=== PATIENT | male | born 1975 | race Caucasian/White ===

== ENCOUNTER 2020-09-29 12:33 | Outpatient (CLI) | payer BC | END 2020-09-29 12:34 | disposition home or self-care (01) | LOC: DTY/OP 12:33 | PROVIDERS: ATTEND Surgery | DX: E66.01 Morbid (severe) obesity due to excess calories (principal); Z68.41 Body mass index [BMI] 40.0-44.9, adult | CPT/HCPCS: 97802 ==

== ENCOUNTER 2021-04-01 09:53 | Outpatient (CLI) | payer BC ==
[2021-04-01 12:06] LABS: #Basophils 0.1 10x3/uL (0.0-0.2); #Eosinphils 0.1 10x3/uL (0.0-0.5); #Monocytes 0.7 10x3/uL (0.0-1.1); #Neutrophils 5.5 10x3/uL (1.5-8.4); %Basophils 0.7 % (0.0-2.0); %Eosinophils 1.6 % (0.0-6.0); %Lymphocytes 25.7 % (18.0-47.0); %Monocytes 7.7 % (0.0-10.0); %Neutrophils 63.9 % (40.0-75.0); Hemoglobin 17.2 g/dL (13.5-17.5); Mean Corpuscular HGB CONC 32.9 g/dL (32.0-36.0); Mean Corpuscular Hemoglobin 29.4 pg (27.0-33.0); Mean Corpuscular Volume 89.4 fl (81.2-95.1); Platelet Count 269 10x3/uL (150-450); RBC Distribution Width 13.2 % (11.5-14.5); Red Blood Cell (RBC) Count 5.85 10x6/uL (4.32-5.72); White Blood Cell (WBC) Count 8.6 10x3/uL (3.5-10.5)
[2021-04-01 12:09] LABS: ALT (SGPT) 40 U/L (8-55); AST (SGOT) 21 U/L (5-34); Albumin 4.9 g/dL (3.5-5.0); Alkaline Phosphatase 63 U/L (40-110); Anion Gap 19 mmol/L (10-20); BUN (Urea Nitrogen) 75 mg/dL (8.9-20.6); Bilirubin, Total 0.3 mg/dL (0.2-1.2); Calc. Creatinine Clearance 0 mL/min (70-130); Calcium 10.8 mg/dL (7.8-10.44); Carbon Dioxide 21 mmol/L (22-29); Chloride 102 mmol/L (98-107); Globulin 3.4 g/dL (2.4-3.5); Glucose 127 mg/dL (70-105); Protein, Total 8.3 g/dL (6.0-8.3); Sodium 136 mmol/L (136-145)
[2021-04-01 14:28] LABS: Hemoglobin A1c 8.8 % (4.0-6.0)
[2021-04-01 17:26] LABS: SARS-CoV-2 PCR by NAA Not Detected (NotDetected)
== END 2021-04-01 09:54 | disposition home or self-care (01) ==
LOC: LABBT 09:53
PROVIDERS: ATTEND Surgery
DX: Z01.818 Encounter for other preprocedural examination (principal); E66.01 Morbid (severe) obesity due to excess calories; Z20.822 Contact with and (suspected) exposure to COVID-19
CPT/HCPCS: 71046; 80053; 83036; 85025; 93005; 93010; U0003; U0005

== ENCOUNTER 2021-04-01 10:15 | Inpatient (IN) | payer BC ==
[2021-04-02 14:20] VITALS: BMI 43.1
[2021-04-06] MEDS ORDERED: ceFAZolin 2 GM/DEX 5% 100 ML BAG ONE (06:21)
[2021-04-06] MEDS ORDERED: Heparin 5,000 UNITS/ML VIAL ONE (06:21)
[2021-04-06] MEDS ORDERED: Midazolam HCl 2 mg/2 ml Vial ONE (06:41)
[2021-04-06] MEDS ORDERED: Fentanyl 250 MCG/5 ML VIAL ONE (06:41)
[2021-04-06] MEDS ORDERED: Lidocaine 2% Jelly 5 ML TUBE ONE (06:41)
[2021-04-06] MEDS ORDERED: Bupivacaine 0.25% HCL 30 ML VIAL ONE (06:48)
[2021-04-06] MEDS ORDERED: Lidocaine 0.5%/Epinephrine 1:200,000 50 ml Vial ONE (06:48)
[2021-04-06] MEDS ORDERED: Lidocaine 1% w/Epinephrine 1:100K 20 ML VIAL ONE (06:50)
[2021-04-06 07:46] LABS: Potassium 4.8 mmol/L (3.5-5.1)
[2021-04-06] MEDS ORDERED: Glycopyrrolate 0.2 MG/ML 5 ML SYRINGE ONE (08:02)
[2021-04-06] MEDS ORDERED: Dexamethasone 20 MG/5 ML VIAL ONE (08:02)
[2021-04-06] MEDS ORDERED: Lidocaine 1% PF 5 ML VIAL ONE (08:02)
[2021-04-06] MEDS ORDERED: Rocuronium Bromide 10 MG/ML (10ML VIAL) ONE (08:02)
[2021-04-06] MEDS ORDERED: Ondansetron PF 4 MG/2 ML Vial ONE (08:02)
[2021-04-06] MEDS ORDERED: PROPOFOL 200 MG/20 ML VIAL ONE (08:02)
[2021-04-06] MEDS ORDERED: Promethazine HCl 25 MG/ML VIAL IM PRN ×2 (08:31→10:43)
[2021-04-06] MEDS ORDERED: Promethazine HCl 25 MG/ML VIAL IVPB PRN (08:31)
[2021-04-06] MEDS ORDERED: Ondansetron HCl/PF 4 MG/2 ML Vial IVP PRN (08:31)
[2021-04-06] MEDS ORDERED: Fentanyl 100 MCG/2 ML VIAL ONE ×3 (10:21→11:34)
[2021-04-06] MEDS ORDERED: Promethazine HCl 25 MG/ML VIAL ONE (10:25)
[2021-04-06] MEDS ORDERED: fentaNYL Citrate/PF 2,000 MCG in Sodium Chloride 0.9% 60 ML IV PRN (10:43)
[2021-04-06] MEDS ORDERED: diphenhydrAMINE 50 MG/ML VIAL IM PRN (10:43)
[2021-04-06] MEDS ORDERED: Ondansetron PF 4 MG/2 ML Vial IVP PRN ×2 (10:43→11:30)
[2021-04-06] MEDS ORDERED: diphenhydrAMINE 50 MG/ML VIAL IVP PRN ×2 (10:43→11:30)
[2021-04-06] MEDS ORDERED: Zolpidem Tartrate 5 MG TAB PO PRN (10:43)
[2021-04-06] MEDS ORDERED: Naloxone HCl 0.4 mg/ml Vial IV PRN (10:43)
[2021-04-06] MEDS ORDERED: diphenhydrAMINE 25 MG CAP PO PRN (10:43)
[2021-04-06] MEDS ORDERED: Communication Order-Pharmacy FS SCH (10:45)
[2021-04-06] MEDS ORDERED: HYDROmorphone 0.5 MG/0.5 ML SYRINGE ONE (11:23)
[2021-04-06] MEDS ORDERED: hydrALAZINE 20 MG/ML VIAL SLOW IVP PRN (11:30)
[2021-04-06] MEDS ORDERED: Dextrose 50% Abboject 50 ML SYRINGE SLOW IVP PRN (11:30)
[2021-04-06] MEDS ORDERED: HumaLOG 300 UNITS/3 ML VIAL SC PRN (11:30)
[2021-04-06] MEDS ORDERED: Hydrocodone-Acetamin 15 ML UDCUP PO PRN (11:30)
[2021-04-06] MEDS ORDERED: Dextrose 5% in Water 1,000 ML IV PRN (11:30)
[2021-04-06] MEDS: Sodium Chloride 0.9% 1,000 ML IV SCH ×2 (20:01)
[2021-04-06] MEDS ORDERED: Enoxaparin Sodium 40 MG/0.4 ML SYRINGE SC SCH (21:00)
[2021-04-06] MEDS: Promethazine HCl 25 MG/ML VIAL IM PRN (22:49)
[2021-04-07 04:26] LABS: #Lymphocytes 1.6 thou/uL (1.20-3.40); #Neutrophils 7.2 thou/uL (1.40-6.50); %Basophils 0.1 % (0.0-1.0); %Eosinophils 0.1 % (0.0-10.0); %Lymphocytes 16.3 % (21.0-51.0); %Monocytes 10.1 % (0.0-10.0); %Neutrophils 73.4 % (42.0-75.0); Hemoglobin 14.1 g/dL (14.0-18.0); Mean Corpuscular HGB CONC 32.6 g/dL (32.0-36.0); Mean Corpuscular Hemoglobin 30.6 pg (27.0-31.0); Mean Corpuscular Volume 93.8 fL (78.0-98.0); Mean Platelet Volume 9.8 fL (7.4-10.4); Platelet Count 226 thou/uL (130-400); RBC Distribution Width 12.4 % (11.5-14.5); White Blood Cell (WBC) Count 9.8 thou/uL (4.8-10.8)
[2021-04-07 04:44] LABS: Anion Gap 15 mmol/L (10-20); BUN (Urea Nitrogen) 38 mg/dL (8.9-20.6); Calc. Creatinine Clearance 124 mL/min (70-130); Calcium 9.2 mg/dL (7.8-10.44); Carbon Dioxide 17 mmol/L (22-29); Chloride 111 mmol/L (98-107); Glucose 114 mg/dL (70-105); Potassium 4.9 mmol/L (3.5-5.1); Sodium 138 mmol/L (136-145)
[2021-04-07] MEDS ORDERED: Hydrocodone-Acetamin 15 ML UDCUP PO PRN (05:20)
[2021-04-07] MEDS: Sodium Chloride 0.9% 1,000 ML IV SCH ×2 (05:41→13:44)
[2021-04-07] MEDS: Promethazine HCl 25 MG/ML VIAL IM PRN (05:49)
[2021-04-07 08:53] VITALS: TEMP 98.4
[2021-04-07] MEDS ORDERED: Pantoprazole 40 MG VIAL IVP SCH (09:00)
[2021-04-07] MEDS ORDERED: Lisinopril 20 MG TAB PO SCH (09:00)
[2021-04-07 12:15] VITALS: BP 142/78
== END 2021-04-07 14:15 | disposition home or self-care (01) | DRG 621 ==
LOC: SURG A 04-06 05:53 → EDSTATUS 04-06 10:15 → SURG A 04-06 13:31
PROVIDERS: ADMIT Surgery; ATTEND Surgery
PROC: 0D164ZA Bypass Stomach to Jejunum, Percutaneous Endoscopic Approach (ICD-10-PCS; principal; 2021-04-06)
PROC: 8E0W4CZ Robotic Assisted Procedure of Trunk Region, Percutaneous Endoscopic Approach (ICD-10-PCS; 2021-04-06)
DX: E66.01 Morbid (severe) obesity due to excess calories (principal); Z68.41 Body mass index [BMI] 40.0-44.9, adult; E11.9 Type 2 diabetes mellitus without complications; K21.9 Gastro-esophageal reflux disease without esophagitis; I10 Essential (primary) hypertension
CPT/HCPCS: 36415; 36416; 80048; 84132; 85025; C9113; J1100; J1170; J1644; J1650; J2001; J2250; J2405; J2550; J2704; J3010; J7050; S0020

== ENCOUNTER 2022-06-09 01:13 | Inpatient (IN) | payer BC, SELFPAY ==
[2022-06-09 02:12] LABS: #Basophils 0.1 thou/uL (0.0-0.2); #Eosinphils 0.1 thou/uL (0.0-0.7); #Lymphocytes 2.2 thou/uL (1.20-3.40); #Monocytes 0.6 thou/uL (0.11-0.59); #Neutrophils 5.5 thou/uL (1.40-6.50); %Basophils 0.6 % (0.0-1.0); %Eosinophils 1.1 % (0.0-10.0); %Monocytes 6.6 % (0.0-10.0); %Neutrophils 65.6 % (42.0-75.0); Mean Corpuscular HGB CONC 33.3 g/dL (32.0-36.0); Mean Corpuscular Hemoglobin 31.4 pg (27.0-31.0); Mean Corpuscular Volume 94.2 fl (78.0-98.0); Mean Platelet Volume 9.4 fL (7.4-10.4); Platelet Count 219 10x3/uL (130-400); RBC Distribution Width 12.7 % (11.5-14.5); Red Blood Cell (RBC) Count 5.08 mill/uL (4.70-6.10); White Blood Cell (WBC) Count 8.4 10x3/uL (4.8-10.8)
[2022-06-09] MEDS ORDERED: Morphine 4 MG/ML VIAL ONE (02:25)
[2022-06-09] MEDS ORDERED: Ondansetron PF 4 MG/2 ML Vial ONE ×3 (02:25→15:37)
[2022-06-09] MEDS ORDERED: Famotidine/PF 20 mg/2ml Vial ONE ×2 (02:25→08:17)
[2022-06-09 02:32] LABS: Bacteria/HPF None Seen HPF (None Seen); Bilirubin Negative (Negative); Blood, Urine Negative (Negative); Clarity Clear (Clear); Glucose, Urine (Dipstick) Greater than 1000 mg/dL (Negative); Ketone, Urine Negative (Negative); Leukocyte Negative Leu/uL (Negative); Nitrite Negative (Negative); Protein, Urine (Dipstick) 100 mg/dL (Neg-Trace); RBC/HPF 0-3 HPF (0-3); Specific Gravity, Urine 1.028 (1.002-1.036); Squamous Epithelial 0-3 HPF (0-3); Urobilinogen Normal mg/dL (Less than 2); WBC/HPF 0-3 HPF (0-3); pH, Urine 5.5 (5.0-9.0)
[2022-06-09 02:34] LABS: ALT (SGPT) 41 U/L (8-55); AST (SGOT) 31 U/L (5-34); Alkaline Phosphatase 61 U/L (40-110); Anion Gap 14 mmol/L (10-20); BUN (Urea Nitrogen) 20 mg/dL (8.9-20.6); Bilirubin, Total 0.4 mg/dL (0.2-1.2); Calc. Creatinine Clearance 0 mL/min (70-130); Calcium 9.4 mg/dL (7.8-10.44); Carbon Dioxide 26 mmol/L (22-29); Chloride 106 mmol/L (98-107); Estimated GFR 79; Glucose 140 mg/dL (70-105); Lipase 41 U/L (8-78); Potassium 4.6 mmol/L (3.5-5.1); Sodium 141 mmol/L (136-145)
[2022-06-09] MEDS ORDERED: Fentanyl 100 MCG/2 ML VIAL ONE ×4 (02:47→15:23)
[2022-06-09] MEDS ORDERED: HYDROmorphone 0.5 MG/0.5 ML SYRINGE ONE (03:18)
[2022-06-09 04:25] VITALS: BMI 23.7
[2022-06-09] MEDS ORDERED: Promethazine HCl 25 MG/ML VIAL IM PRN ×3 (07:27→14:39)
[2022-06-09] MEDS ORDERED: Dextrose 5% in Water 1,000 ML IV PRN ×2 (07:27→14:35)
[2022-06-09] MEDS ORDERED: Ipratropium/Albuterol 3 ML NEB NEB PRN (07:27)
[2022-06-09] MEDS ORDERED: Dextrose 50% Abboject 50 ML SYRINGE SLOW IVP PRN ×2 (07:27→14:35)
[2022-06-09] MEDS ORDERED: hydrALAZINE 20 MG/ML VIAL SLOW IVP PRN (07:27)
[2022-06-09] MEDS ORDERED: Ondansetron PF 4 MG/2 ML Vial IVP PRN (07:27)
[2022-06-09] MEDS ORDERED: Fentanyl 100 MCG/2 ML VIAL SLOW IVP PRN (07:28)
[2022-06-09] MEDS ORDERED: D5 1/2 NS w/20 mEq KCL 1,000 ML IV SCH (07:30)
[2022-06-09] MEDS ORDERED: D5 1/2 NS w/20 mEq KCL 1,000 ML ONE (08:17)
[2022-06-09] MEDS ORDERED: Famotidine 20 MG TAB PO SCH (09:00)
[2022-06-09] MEDS ORDERED: Famotidine/PF 20 mg/2ml Vial SLOW IVP SCH (09:00)
[2022-06-09 10:02] LABS: SARS-CoV-2 NAA Rapid Test Not Detected (NotDetected)
[2022-06-09] MEDS ORDERED: fentaNYL PF 100 MCG/2 ML SYRINGE ONE (11:52)
[2022-06-09] MEDS ORDERED: CEFAZOLIN 2 GM VIAL ONE (12:09)
[2022-06-09] MEDS ORDERED: Sodium Chloride 0.9% 100 ML ONE (12:09)
[2022-06-09] MEDS ORDERED: Succinylcholine Chloride 100 MG/5 ML SYRINGE FS ONE (12:15)
[2022-06-09] MEDS ORDERED: PHENYLEPHRINE-NS 100 MCG/ML 10 ML SYRINGE ONE (12:15)
[2022-06-09] MEDS ORDERED: Glycopyrrolate 0.2 MG/ML 5 ML SYRINGE ONE (12:15)
[2022-06-09] MEDS ORDERED: PROPOFOL 200 MG/20 ML VIAL ONE (12:15)
[2022-06-09] MEDS ORDERED: Dexamethasone 20 MG/5 ML VIAL ONE (12:15)
[2022-06-09] MEDS ORDERED: Lidocaine 1% PF 5 ML VIAL ONE (12:15)
[2022-06-09] MEDS ORDERED: NEOSTIGMINE 3 MG/3 ML SYR 3 MG/3 ML SYRINGE ONE (12:15)
[2022-06-09] MEDS ORDERED: Rocuronium Bromide 10 MG/ML (10ML VIAL) ONE (12:15)
[2022-06-09] MEDS ORDERED: Bupivacaine/Epinephrine 0.25% 30 ML VIAL ONE (12:59)
[2022-06-09] MEDS ORDERED: GASTROGRAFIN 30 ML BOT ONE (14:29)
[2022-06-09] MEDS ORDERED: Iopamidol-370 76% 500 ML 1 ML ONE (14:29)
[2022-06-09] MEDS ORDERED: diphenhydrAMINE 25 MG CAP PO PRN (14:39)
[2022-06-09] MEDS ORDERED: Naloxone HCl 0.4 mg/ml Vial IV PRN (14:39)
[2022-06-09] MEDS ORDERED: diphenhydrAMINE 50 MG/ML VIAL IM PRN (14:39)
[2022-06-09] MEDS ORDERED: Ondansetron HCl/PF 4 MG/2 ML Vial IVP PRN (14:39)
[2022-06-09] MEDS ORDERED: diphenhydrAMINE 50 MG/ML VIAL IVP PRN (14:39)
[2022-06-09] MEDS ORDERED: FENTANYL 500 MCG/10 ML VIAL 2,000 MCG in Sodium Chloride 0.9% 60 ML IV PRN (14:39)
[2022-06-09] MEDS ORDERED: Communication Order-Pharmacy FS PRN (14:45)
[2022-06-09] MEDS: Sodium Chloride 0.9% 1,000 ML IV SCH (17:45)
[2022-06-10] MEDS: Sodium Chloride 0.9% 1,000 ML IV SCH ×4 (00:30→23:50)
[2022-06-10] MEDS: Ondansetron PF 4 MG/2 ML Vial IVP PRN ×2 (06:12→14:00)
[2022-06-10 08:01] LABS: #Eosinphils 0.1 thou/uL (0.0-0.7); #Lymphocytes 1.6 thou/uL (1.20-3.40); #Monocytes 1.1 thou/uL (0.11-0.59); #Neutrophils 6.8 thou/uL (1.40-6.50); %Basophils 0.5 % (0.0-1.0); %Eosinophils 0.7 % (0.0-10.0); %Lymphocytes 17.1 % (21.0-51.0); %Monocytes 11.2 % (0.0-10.0); %Neutrophils 70.6 % (42.0-75.0); Hemoglobin 14.2 g/dL (14.0-18.0); Mean Corpuscular HGB CONC 34.1 g/dL (32.0-36.0); Mean Corpuscular Hemoglobin 32.4 pg (27.0-31.0); Mean Corpuscular Volume 95.1 fl (78.0-98.0); Mean Platelet Volume 9.2 fL (7.4-10.4); Platelet Count 199 10x3/uL (130-400); RBC Distribution Width 12.7 % (11.5-14.5); Red Blood Cell (RBC) Count 4.37 mill/uL (4.70-6.10); White Blood Cell (WBC) Count 9.6 10x3/uL (4.8-10.8)
[2022-06-10 08:19] LABS: Anion Gap 14 mmol/L (10-20); BUN (Urea Nitrogen) 16 mg/dL (8.9-20.6); Calc. Creatinine Clearance 113 mL/min (70-130); Calcium 8.6 mg/dL (7.8-10.44); Carbon Dioxide 24 mmol/L (22-29); Chloride 105 mmol/L (98-107); Estimated GFR 104; Glucose 156 mg/dL (70-105); Potassium 4.3 mmol/L (3.5-5.1); Sodium 139 mmol/L (136-145)
[2022-06-10] MEDS: Pantoprazole 40 MG VIAL IVP SCH (08:22)
[2022-06-10] MEDS ORDERED: traMADol HCl 50 MG TAB PO PRN (11:16)
[2022-06-10] MEDS ORDERED: HYDROcodone/Acetaminophen 5/325 mg Tablet PO PRN ×2 (11:17→11:18)
[2022-06-10] MEDS: traMADol HCl 50 MG TAB PO PRN (14:01)
[2022-06-10] MEDS: HumaLOG 300 UNITS/3 ML VIAL SC PRN ×2 (16:05→23:49)
[2022-06-11] MEDS: HumaLOG 300 UNITS/3 ML VIAL SC PRN (06:29)
[2022-06-11] MEDS: Sodium Chloride 0.9% 1,000 ML IV SCH (07:06)
[2022-06-11] MEDS: Pantoprazole 40 MG VIAL IVP SCH (07:38)
[2022-06-11] MEDS: traMADol HCl 50 MG TAB PO PRN ×2 (09:29→20:39)
[2022-06-11] MEDS ORDERED: Acetaminophen 500 MG TAB PO PRN (10:04)
[2022-06-11] MEDS ORDERED: Glimepiride 4 MG TAB PO SCH (12:00)
[2022-06-11] MEDS ORDERED: Acetaminophen 500 MG TAB PO SCH (12:00)
[2022-06-11] MEDS: metFORMIN 500 MG TAB PO SCH (20:38)
[2022-06-11] MEDS: Empagliflozin 25 MG TAB PO SCH (20:39)
[2022-06-12] MEDS ORDERED: Glimepiride 4 MG TAB PO SCH (08:00)
[2022-06-12] MEDS ORDERED: Lisinopril 20 MG TAB PO SCH (09:00)
[2022-06-12] MEDS ORDERED: Multivit, Therapeutic 1 TAB PO SCH (09:00)
[2022-06-12] MEDS: metFORMIN 500 MG TAB PO SCH (09:39)
[2022-06-12] MEDS: Empagliflozin 25 MG TAB PO SCH (09:39)
[2022-06-12] MEDS ORDERED: Dulaglutide [Trulicity] 1.5 MG/0.5 ML Pen.Injctr SC SCH (12:00)
[2022-06-12 12:44] VITALS: BP 142/78; TEMP 98.2
== END 2022-06-12 14:30 | disposition home or self-care (01) | DRG 326 ==
LOC: ERS 01:13 → ERHOLD 03:55 → SJJU 04:00 → SURG A 14:43 → SJJU 17:39
PROVIDERS: ADMIT Specialist; ATTEND Surgery
PROC: 0DQV0ZZ Repair Mesentery, Open Approach (ICD-10-PCS; principal; 2022-06-09)
PROC: 0DJ04ZZ Inspection of Upper Intestinal Tract, Percutaneous Endoscopic Approach (ICD-10-PCS; 2022-06-09)
DX: K45.8 Other specified abdominal hernia without obstruction or gangrene (principal); K56.2 Volvulus; K55.8 Other vascular disorders of intestine; Z20.822 Contact with and (suspected) exposure to COVID-19; E11.9 Type 2 diabetes mellitus without complications; I10 Essential (primary) hypertension; Z98.84 Bariatric surgery status; Z53.31 Laparoscopic surgical procedure converted to open procedure; Z79.899 Other long term (current) drug therapy; Z79.4 Long term (current) use of insulin
CPT/HCPCS: 36415; 36416; 74177; 80048; 80053; 81003; 81015; 83605; 83690; 84484; 85025; 93005; 96374; 96375; C9113; J1100; J1170; J2270; J2405; J2704; J3010; J3480; J3490; J7050; Q9963; Q9967; S0028; U0002

== ENCOUNTER 2024-06-16 22:27 | Observation (INO) | payer BC, OTHER ==
[2024-06-16 23:09] LABS: Bacteria/HPF None Seen HPF (None Seen); Bilirubin Negative (Negative); Blood, Urine Negative (Negative); CAUTI Indications for Culture < 2yrs of age; Clarity Clear (Clear); Glucose, Urine (Dipstick) Greater than 1000 mg/dL (Negative); Ketone, Urine Negative (Negative); Leukocyte Negative Leu/uL (Negative); Nitrite Negative (Negative); Protein, Urine (Dipstick) 200 mg/dL (Neg-Trace); RBC/HPF 0-3 HPF (0-3); Squamous Epithelial 0-3 HPF (0-3); Urine Culture Reflex Yes Yes; Urobilinogen Normal mg/dL (Less than 2); WBC/HPF 0-3 HPF (0-3); pH, Urine 5.5 (5.0-9.0)
[2024-06-17 00:30] LABS: #Basophils 0.06 10x3/uL (0.0-0.2); %Basophils 0.7 % (0.0-1.0); %Lymphocytes 25.4 % (21.0-51.0); %Monocytes 6.4 % (0.0-10.0); %Neutrophils 66.2 % (42.0-75.0); Hematocrit 48.3 % (42.0-52.0); Hemoglobin 16.2 g/dL (14.0-18.0); Mean Corpuscular HGB CONC 33.5 g/dL (32.0-36.0); Mean Corpuscular Hemoglobin 30.2 pg (27.0-31.0); Mean Corpuscular Volume 89.9 fL (78.0-98.0); Mean Platelet Volume 11.5 fL (7.4-10.4); Platelet Count 257 10x3/uL (130-400); RBC Distribution Width 13.2 % (11.5-14.5); Red Blood Cell (RBC) Count 5.37 mill/uL (4.70-6.10)
[2024-06-17] MEDS ORDERED: Ondansetron PF 4 MG/2 ML Vial ONE (00:38)
[2024-06-17] MEDS ORDERED: Morphine 4 MG/ML VIAL ONE (00:38)
[2024-06-17] MEDS ORDERED: Ketorolac Tromethamine 30 MG (1 mL) VIAL ONE (00:38)
[2024-06-17 00:48] LABS: ALT (SGPT) 23 U/L (Less than 45); AST (SGOT) 26 U/L (11-34); Albumin 4.1 g/dL (3.1-4.5); Alkaline Phosphatase 58 U/L (40-110); Anion Gap 15 mmol/L (10-20); BUN (Urea Nitrogen) 22 mg/dL (8.9-20.6); Bilirubin, Total 0.3 mg/dL (0.3-1.2); Calc. Creatinine Clearance 0 mL/min (70-130); Calcium 9.5 mg/dL (7.8-10.44); Carbon Dioxide 24 mmol/L (22-29); Chloride 106 mmol/L (98-107); Estimated GFR 94; Globulin 3.2 g/dL (2.4-3.5); Glucose 115 mg/dL (70-105); Lipase 38 U/L (8-78); Potassium 4.4 mmol/L (3.5-5.1); Protein, Total 7.3 g/dL (6.0-8.3); Sodium 141 mmol/L (136-145)
[2024-06-17 03:06] LABS: Troponin I Less than 0.010 ng/mL (< 0.028)
[2024-06-17] MEDS ORDERED: Piperacillin/Tazobactam 4.5 GM VIAL ONE (03:24)
[2024-06-17] MEDS ORDERED: Sodium Chloride 0.9% 100 ML ONE (03:24)
[2024-06-17] MEDS ORDERED: HYDROmorphone 0.5 MG/0.5 ML SYRINGE ONE (05:00)
[2024-06-17] MEDS ORDERED: Dextrose 50% Abboject 50 ML SYRINGE SLOW IVP PRN (08:00)
[2024-06-17] MEDS ORDERED: Glucagon 1 MG/ML KIT IM PRN (08:00)
[2024-06-17] MEDS ORDERED: Insulin Regular, Human 100 UNIT/ML 10 ML VIAL SC PRN (08:00)
[2024-06-17] MEDS ORDERED: Morphine 4 MG/ML VIAL SLOW IVP PRN (08:00)
[2024-06-17] MEDS ORDERED: Ondansetron PF 4 MG/2 ML Vial IVP PRN ×2 (08:00)
[2024-06-17] MEDS ORDERED: Ondansetron ODT 4 MG TAB SL PRN (08:00)
[2024-06-17] MEDS ORDERED: Dextrose 5% in Water 1,000 ML IV PRN (08:00)
[2024-06-17] MEDS: Enoxaparin 40 MG (0.4 mL) SYRINGE SC SCH (08:36)
[2024-06-17] MEDS: Famotidine/PF 20 mg/2ml Vial SLOW IVP SCH (08:37)
[2024-06-17] MEDS: Sodium Chloride 0.9% 1,000 ML IV SCH (08:37)
[2024-06-17] MEDS ORDERED: HYDROmorphone 0.5 MG/0.5 ML SYRINGE SLOW IVP SCH (08:45)
[2024-06-17 08:49] VITALS: BMI 27.3
[2024-06-17] MEDS ORDERED: GASTROGRAFIN 30 ML BOT ONE (11:09)
[2024-06-17] MEDS ORDERED: Iopamidol-370 76% 500 ML MDV (1 ML CHARGE) ONE (11:09)
[2024-06-17] MEDS ORDERED: Piperacillin/Tazobactam 4.5 GM in Sodium Chloride 0.9% 100 ML IVPB SCH (12:00)
[2024-06-17] MEDS: Piperacillin/Tazobactam 3.375 GM in Sodium Chloride 0.9% 100 ML IVPB SCH (14:37)
[2024-06-17] MEDS ORDERED: traZODone HCl 50 MG TAB PO PRN (16:33)
[2024-06-17] MEDS: HYDROmorphone 0.5 MG/0.5 ML SYRINGE SLOW IVP SCH (17:42)
[2024-06-17] MEDS: D5 1/2 NS w/20 mEq KCL 1,000 ML IV SCH (18:22)
[2024-06-17] MEDS: Magnesium Citrate 300 ML BOT PO SCH (19:59)
[2024-06-17] MEDS: HYDROmorphone 2 MG TAB PO PRN (20:34)
[2024-06-18 05:42] LABS: #Basophils 0.05 10x3/uL (0.0-0.2); %Basophils 0.8 % (0.0-1.0); %Eosinophils 3.4 % (0.0-10.0); %Lymphocytes 25.8 % (21.0-51.0); %Monocytes 8.1 % (0.0-10.0); %Neutrophils 61.6 % (42.0-75.0); Hematocrit 42.9 % (42.0-52.0); Hemoglobin 14.5 g/dL (14.0-18.0); Mean Corpuscular HGB CONC 33.8 g/dL (32.0-36.0); Mean Corpuscular Hemoglobin 30.6 pg (27.0-31.0); Mean Corpuscular Volume 90.5 fL (78.0-98.0); Mean Platelet Volume 11.2 fL (7.4-10.4); Platelet Count 228 10x3/uL (130-400); RBC Distribution Width 13.1 % (11.5-14.5); Red Blood Cell (RBC) Count 4.74 mill/uL (4.70-6.10)
[2024-06-18 06:01] LABS: Anion Gap 14 mmol/L (10-20); BUN (Urea Nitrogen) 14 mg/dL (8.9-20.6); Calc. Creatinine Clearance 114 mL/min (70-130); Calcium 8.6 mg/dL (7.8-10.44); Carbon Dioxide 24 mmol/L (22-29); Chloride 106 mmol/L (98-107); Estimated GFR 100; Glucose 91 mg/dL (70-105); Potassium 4.3 mmol/L (3.5-5.1); Sodium 140 mmol/L (136-145)
[2024-06-18] MEDS: Lisinopril 10 MG TAB PO SCH (08:23)
[2024-06-18 13:05] VITALS: BP 136/87; TEMP 98.6
== END 2024-06-18 15:15 | disposition home or self-care (01) ==
LOC: ERS 22:27 → T4-B 06-17 06:17
PROVIDERS: ADMIT Internal Medicine; ATTEND Nurse Practitioner Acute Care
DX: R10.33 Periumbilical pain (principal); R10.13 Epigastric pain; R11.0 Nausea; I10 Essential (primary) hypertension; E11.9 Type 2 diabetes mellitus without complications; Z98.84 Bariatric surgery status; Z98.890 Other specified postprocedural states; Z79.4 Long term (current) use of insulin; Z79.84 Long term (current) use of oral hypoglycemic drugs; Z79.85 Long-term (current) use of injectable non-insulin antidiabetic drugs; Z79.899 Other long term (current) drug therapy
CPT/HCPCS: 36415; 36416; 74177; 76705; 78226; 80048; 80053; 81001; 83605; 83690; 84484; 85025; 87086; 93005; 96365; 96372; 96375; 96376; A9537; G0378; J1171; J1650; J1885; J2270; J2405; J2543; J3480; J3490; J7030; J7042; Q9963; Q9967

== ENCOUNTER 2025-02-25 19:15 | Emergency (ER) | payer OTHER ==
[~2025-02-25 19:15] MED LIST: Iopamidol-370 76% 500 ML MDV (1 ML CHARGE) ONE
[2025-02-25] MEDS ORDERED: Ondansetron PF 4 MG/2 ML Vial ONE ×2 (20:42→20:43)
[2025-02-25 20:50] LABS: #Basophils 0.06 10x3/uL (0.0-0.2); #Eosinophils 0.12 10x3/uL (0.0-0.7); #Monocytes 0.77 10x3/uL (0.11-0.59); #Neutrophils 7.63 10x3/uL (1.40-6.50); %Basophils 0.6 % (0.0-1.0); %Eosinophils 1.2 % (0.0-10.0); %Lymphocytes 14.8 % (21.0-51.0); %Monocytes 7.6 % (0.0-10.0); %Neutrophils 75.2 % (42.0-75.0); Hematocrit 52.6 % (42.0-52.0); Hemoglobin 17.2 g/dL (14.0-18.0); Mean Corpuscular Hemoglobin 29.8 pg (27.0-31.0); Mean Corpuscular Volume 91.2 fL (78.0-98.0); Platelet Count 276 10x3/uL (130-400); Red Blood Cell (RBC) Count 5.77 mill/uL (4.70-6.10); White Blood Cell (WBC) Count 10.14 10x3/uL (4.8-10.8)
[2025-02-25 21:04] LABS: ALT (SGPT) 35 U/L (Less than 45); AST (SGOT) 26 U/L (11-34); Albumin 4.0 g/dL (3.1-4.5); Alkaline Phosphatase 78 U/L (40-110); Anion Gap 18 mmol/L (10-20); BUN (Urea Nitrogen) 24 mg/dL (8.9-20.6); Bilirubin, Total 0.4 mg/dL (0.3-1.2); Calc. Creatinine Clearance 0 mL/min (70-130); Calcium 9.7 mg/dL (7.8-10.44); Carbon Dioxide 28 mmol/L (22-29); Chloride 101 mmol/L (98-107); Globulin 3.7 g/dL (2.4-3.5); Glucose 200 mg/dL (70-105); Lipase 73 U/L (8-78); Potassium 4.1 mmol/L (3.5-5.1); Sodium 143 mmol/L (136-145)
== END 2025-02-25 21:51 | disposition home or self-care (01) ==
LOC: ERS 19:15
DX: K59.00 Constipation, unspecified (principal); E11.9 Type 2 diabetes mellitus without complications; Z79.85 Long-term (current) use of injectable non-insulin antidiabetic drugs; Z79.84 Long term (current) use of oral hypoglycemic drugs; Z79.4 Long term (current) use of insulin
CPT/HCPCS: 74177; 80053; 83690; 85025; 96361; 96374; 96375; J2270; Q9967